=== PATIENT | female | born 1970 | race Caucasian/White ===

== ENCOUNTER → 2018-01-27 | Outpatient (CLI) | payer BC | END | disposition home or self-care (01) | LOC: KCIC MAMMO 16:05 | DX: Z12.31 Encounter for screening mammogram for malignant neoplasm of breast (principal) | CPT/HCPCS: 77063; 77067 ==

== ENCOUNTER → 2018-02-21 | Outpatient (CLI) | payer BC ==
[~2018-02-21] MED LIST: IOHEXOL 240 MG/ML 50ML VIAL. PO
[2018-02-21] MEDS: IOHEXOL 300 MG/ML 100ML VIAL. IV (12:18)
== END | disposition home or self-care (01) ==
LOC: KCIC CT 09:14
DX: E78.00 Pure hypercholesterolemia, unspecified (principal); R10.84 Generalized abdominal pain; Z98.890 Other specified postprocedural states; Z98.84 Bariatric surgery status
CPT/HCPCS: 74177; 75571; Q9967

== ENCOUNTER → 2018-08-01 | Outpatient (CLI) | payer BC ==
--- NOTE | 2018-08-01 14:18 | KCIC ---
Left breast diagnostic digital mammograms: Reason for examination: Left breast pain deep and medial to the nipple radiating to the axilla for one week. Comparison is made to previous study dated 01/27/2018. Interpretation was made with the benefit of CAD. The skin and nipple show no abnormalities. No abnormal axillary lymph nodes are seen. The breast parenchyma shows scattered fibroglandular density. (Breast density: Category B.) There are no dominant masses, suspicious calcifications or architectural distortions. Impression: No evidence of malignancy. Ultrasound to follow. BI-RADS Category 0: Incomplete. Needs additional imaging evaluation. Left breast ultrasound: Left whole breast ultrasound including evaluation of all 4 quadrants and the retroareolar and axillary regions of the left breast was performed. No cystic or solid nodules or architectural distortions are seen. No abnormal appearing lymph nodes are seen in the axilla. IMPRESSION: No focal or suspicious abnormality seen mammographically in the left breast or axilla. Recommend routine mammographic follow-up and clinical follow-up. BI-RADS Category 1: Negative. "Our facility is accredited by the [employer] Mammography Program." This patient's information has been entered into a reminder system for the patient to be notified with the results of her examination and a target date for the next mammogram. Electronically signed by: Anita Wray MD (08/01/2018 2:15 PM) [id number]
== END | disposition home or self-care (01) ==
LOC: KCIC MAMMO 12:06
PROVIDERS: ATTEND Family Medicine
DX: N64.4 Mastodynia (principal); E78.00 Pure hypercholesterolemia, unspecified
CPT/HCPCS: 76641; 77065

== ENCOUNTER → 2019-11-11 | Outpatient (CLI) | payer BC, OTHER ==
--- NOTE | 2019-11-11 16:23 | KCIC ---
Renal ultrasound 11/11/2019 INDICATION: Abnormal CT, performed at outside institution October 29, 2019 no images are available for review. Discussion: Sonographic evaluation of the kidneys was performed. Static images are submitted to PACS. Right kidney measures 10.1 x 4.8 x 5.0 cm. Left kidney measures 10.4 x 4.4 x 4.6 cm. No hydronephrosis, nephrolithiasis, or focal renal lesion is seen. Limited color Doppler evaluation of the kidneys demonstrates no gross perfusion abnormality. Visualized portions of the aorta are unremarkable. The IVC is nonvisualized. The bladder is unremarkable in appearance. Bilateral ureteral jets noted. IMPRESSION: Unremarkable sonographic appearance of the kidneys Electronically signed by: Taqueria Mauro MD (11/11/2019 4:20 PM) [id number]
--- NOTE | 2019-11-11 16:47 | KCIC ---
Bilateral digital screening mammograms with 3-D tomosynthesis: Reason for examination: Routine screening. Comparison is made to previous studies dated 01/27/2018 and 02/21/2016. Bilateral mammograms in CC and oblique projections were obtained with 2-D imaging and 3-D tomosynthesis imaging on a [employer] Inspiration unit and reviewed on the workstation. Interpretation was made with the benefit of CAD. The skin and nipples show no abnormalities. No abnormal axillary lymph nodes are seen. The breast parenchyma is predominantly fatty. (Breast density: Category A.) There are no dominant masses, suspicious calcifications or architectural distortion. Impression: No evidence of malignancy. Recommend routine screening. BI-RAD Category 1: Negative. "Our facility is accredited by the [employer] Mammography Program." This patient's information has been entered into a reminder system for the patient to be notified with the results of her examination and a target date for the next mammogram. Electronically signed by: Anita Wray MD (11/11/2019 4:44 PM) [id number]
== END | disposition home or self-care (01) ==
LOC: KCIC MAMMO 15:04
PROVIDERS: ATTEND Family Medicine
DX: Z12.31 Encounter for screening mammogram for malignant neoplasm of breast (principal); N64.89 Other specified disorders of breast
CPT/HCPCS: 76770; 77063; 77067

== ENCOUNTER → 2019-11-26 | Outpatient (CLI) | payer OTHER ==
[2019-11-26 09:08] LABS: HEMATOCRIT 36.7 % (36.0-47.0); RED BLOOD COUNT 4.36 x10^6/uL (3.50-5.40); RED CELL DISTRIBUTION WIDTH 14.8 % (11.5-14.5); WHITE BLOOD COUNT 4.9 x10^3/uL (4.0-11.0)
[2019-11-26 10:06] LABS: ALBUMIN 4.1 g/dL (3.4-5.0); ALBUMIN/GLOBULIN RATIO 1.2 (1.0-1.7); CALCIUM 9.2 mg/dL (8.5-10.1); CREATININE 0.9 mg/dL (0.6-1.0); GFR 66.3; POTASSIUM 4.7 mmol/L (3.5-5.1); TOTAL BILIRUBIN 0.4 mg/dL (0.2-1.0); TOTAL PROTEIN 7.5 g/dL (6.4-8.2)
[2019-11-26 10:20] LABS: FREE T4 1.28 ng/dL (0.76-1.46); THYROID STIM HORMONE (TSH) 2.509 uIU/mL (0.358-3.74)
== END | disposition home or self-care (01) ==
LOC: LAB 08:00
PROVIDERS: ATTEND Nurse Practitioner Gerontology
DX: Z00.00 Encounter for general adult medical examination without abnormal findings (principal)
CPT/HCPCS: 36415; 80053; 80061; 84439; 84443; 85027

== ENCOUNTER → 2019-12-01 | Outpatient (CLI) | payer OTHER ==
[~2019-12-01] MED LIST changes: -IOHEXOL 240 MG/ML 50ML VIAL. PO; +IOHEXOL 240 MG/ML 50ML VIAL. PO ONE; +IOHEXOL 300 MG/ML 100ML VIAL. IV ONE
--- NOTE | 2019-12-01 14:29 | KCIC ---
CT of the abdomen and pelvis with contrast 12/01/2019 INDICATION: Abnormality of the right kidney COMPARISON STUDY: Renal ultrasound November 11, 2019. CT of the abdomen February 21, 2018. TECHNIQUE: Multidetector CT imaging of the abdomen and pelvis was performed following installation IV contrast FINDINGS: Lung bases are unremarkable. Liver is unremarkable. Cholecystectomy noted. Gastric bypass noted. Spleen is unremarkable. Adrenal glands are unremarkable. Pancreas is grossly unremarkable. Kidneys are normal in appearance without evidence of necrosis, nephrolithiasis, or focal renal lesion. Increased stool is noted throughout the colon. Correlate with clinical evidence of constipation. No free air or significant free fluid is seen in the abdomen or pelvis. No acute osseous changes are identified. IMPRESSION: 1. Significantly increased stool throughout the colon. Correlate with clinical evidence of constipation. 2. Normal appearance of the kidneys. 3. Prior cholecystectomy and gastric bypass surgery CT DOSING PQRS STATEMENT: One or more of the following individualized dose reduction techniques were utilized for this examination: 1. Automated exposure control 2. Adjustment of the mA and/or kV according to patient size 3. Use of iterative reconstruction technique Electronically signed by: Taqueria Mauro MD (12/01/2019 2:26 PM) [id number]
== END | disposition home or self-care (01) ==
LOC: KCIC CT 07:47
PROVIDERS: ATTEND Nurse Practitioner Gerontology
DX: R93.429 Abnormal radiologic findings on diagnostic imaging of unspecified kidney (principal); Z90.49 Acquired absence of other specified parts of digestive tract
CPT/HCPCS: 74177; Q9966; Q9967

== ENCOUNTER → 2020-05-12 | Outpatient (CLI) | payer OTHER ==
--- NOTE | 2020-05-12 11:53 | KCIC ---
BRAIN W/O CONTRAST History:Reason: FREQUENT HEADACHES / Spl. Instructions: / History: Dizziness, Rt temporal headaches. Technique: Multiplanar, multi sequential MR imaging was performed of the brain without contrast. Comparison: None Findings: No acute infarct. No intracranial hemorrhage. No mass effect. No hydrocephalus. Minimal foci of FLAIR hyperintensities within the hemispheric white matter. Imaged orbits are unremarkable. Imaged paranasal sinuses and mastoid air cells are clear. Impression: 1. No acute intracranial abnormality. 2. Minimal nonspecific white matter changes, can be seen in normal individuals or related to sequela chronic microvascular ischemia or migraine headaches. Electronically signed by: Patrice Baptiste DO (05/12/2020 11:51 AM) [id number]
== END | disposition home or self-care (01) ==
LOC: KCIC MRI 10:58
PROVIDERS: ATTEND Nurse Practitioner Gerontology
DX: R51 Headache (principal)
CPT/HCPCS: 70551

== ENCOUNTER → 2020-05-24 | Outpatient (CLI) | payer OTHER ==
[2020-05-24 09:04] LABS: HEMATOCRIT 34.6 % (36.0-47.0); HEMOGLOBIN 11.6 g/dL (12.0-15.5); RED BLOOD COUNT 3.96 x10^6/uL (3.50-5.40); RED CELL DISTRIBUTION WIDTH 13.8 % (11.5-14.5); WHITE BLOOD COUNT 4.2 x10^3/uL (4.0-11.0)
[2020-05-24 09:23] LABS: ALBUMIN 3.7 g/dL (3.4-5.0); ALBUMIN/GLOBULIN RATIO 1.2 (1.0-1.7); CREATININE 1.1 mg/dL (0.6-1.0); GFR 52.4; POTASSIUM 4.5 mmol/L (3.5-5.1); TOTAL BILIRUBIN 0.4 mg/dL (0.2-1.0); TOTAL PROTEIN 6.9 g/dL (6.4-8.2)
[2020-05-24 09:27] LABS: FREE T4 1.07 ng/dL (0.76-1.46); THYROID STIM HORMONE (TSH) 3.429 uIU/mL (0.358-3.74)
== END | disposition home or self-care (01) ==
LOC: LAB 07:55
PROVIDERS: ATTEND Nurse Practitioner Gerontology
DX: R30.0 Dysuria (principal); R51 Headache
CPT/HCPCS: 36415; 80053; 82306; 84439; 84443; 85027; 87086

== ENCOUNTER → 2020-06-21 | Outpatient (CLI) | payer OTHER ==
[2020-06-21 15:45] LABS: CLARITY,URINE CLOUDY; COLOR,URINE ORANGE
[2020-06-21 15:48] LABS: WBC,URINE >40 /HPF (0-4)
[2020-06-21 15:49] LABS: BACTERIA,URINE MOD /HPF (0-FEW); SQUAMOUS EPITHELIAL CELL,UR FEW /LPF
== END | disposition home or self-care (01) ==
LOC: LAB 15:00
PROVIDERS: ATTEND Nurse Practitioner Gerontology
DX: R30.0 Dysuria (principal)
CPT/HCPCS: 81001; 87086

== ENCOUNTER → 2020-07-19 | Outpatient (CLI) | payer OTHER ==
[2020-07-19 09:08] LABS: C-REACTIVE PROTEIN 6.6 mg/L (0-3.3)
[2020-07-19 09:13] LABS: CHOLESTEROL/HDL RATIO 4.8
== END | disposition home or self-care (01) ==
LOC: LAB 11:03
PROVIDERS: ATTEND Family Medicine
DX: Z13.220 Encounter for screening for lipoid disorders (principal); G50.0 Trigeminal neuralgia
CPT/HCPCS: 36415; 80061; 86140

== ENCOUNTER → 2020-11-15 | Outpatient (CLI) | payer OTHER ==
[2020-11-15 08:53] LABS: CHOLESTEROL/HDL RATIO 3.7
[2020-11-15 08:57] LABS: FREE T4 0.95 ng/dL (0.76-1.46); THYROID STIM HORMONE (TSH) 3.362 uIU/mL (0.358-3.74)
== END ==
LOC: LAB 08:02
PROVIDERS: ATTEND Family Medicine
DX: E78.2 Mixed hyperlipidemia (principal); F41.1 Generalized anxiety disorder
CPT/HCPCS: 36415; 80061; 84439; 84443

== ENCOUNTER → 2020-12-07 | Outpatient (CLI) | payer OTHER ==
--- NOTE | 2020-12-07 17:19 | KCIC ---
Bilateral digital screening mammograms with 3-D tomosynthesis: Reason for examination: Routine screening. Comparison is made to previous studies dated back to 12/02/2009. Bilateral mammograms in CC and oblique projections were obtained with 2-D imaging and 3-D tomosynthes is imaging on a [employer] Inspiration unit and reviewed on the workstation. Interpretation was made with the benefit of CAD. The skin and nipples show no abnormalities. No abnormal axillary lymph nodes are seen. The breast par enchyma is predominantly fatty. (Breast density: Category A.) There are no dominant masses, suspiciou s calcifications or architectural distortion. Benign skin calcifications are seen. Impression: No evidence of malignancy. Recommend routine screening. BI-RAD Category 2: Benign. "Our facility is accredited by the [employer] Mammography Program." This patient's information has been entered into a reminder system for the patient to be notified wit h the results of her examination and a target date for the next mammogram. Electronically signed by: Anita Wray MD (12/07/2020 5:16 PM) [id number]
== END ==
LOC: KCIC MAMMO 15:17
PROVIDERS: ATTEND Family Medicine
DX: Z12.31 Encounter for screening mammogram for malignant neoplasm of breast (principal)
CPT/HCPCS: 77063; 77067

== ENCOUNTER 2021-01-11 06:55 | Observation (INO) | payer OTHER ==
[~2021-01-11] VITALS: Ht 157.5 cm; Wt 81.5 kg
--- NOTE | 2021-01-11 07:25 | PHYS DOC ---
Past Medical History Past Medical History: High Cholesterol Additional Past Medical Histor: "head pain" Past Surgical History: Other Additional Past Surgical Histo: lap band, gastric bypass, hernia Smoking Status: Never Smoker Alcohol Use: None Drug Use: None General Adult EDM: Chief Complaint: CHEST PAIN HPI: HPI: This is a pleasant 50-year-old female presenting the emerge department today w ith chest pain that happened overnight. She reports she feels like she "swallowed something" like something stuck in her esophagus. She reports having a normal meal yesterday and denies thinking some things actually stuck in her esophagus she is just describing the pain in her chest. She tried to drink some water which she was able to drink. This did exacerbate her pain. She denies difficulty breathing or shortness of breath. The pain is a cramping burning sensation that radiates to the left shoulder without leaving factors. She reports that she felt some numbness in her hand associated with the pain. Review of systems negative for abdominal pain vomiting. She denies fevers chills or cough. All other review of systems negative. ED course: 50-year-old female presenting with chest pain. EKG obtained which shows sinus rhythm with a regular rate. ST segments congruent. Not suggestive of acute ischemia. Blood work unremarkable. Patient was given aspirin nitroglycerin and a GI cocktail here in the emergency department. Will admit the patient given her heart score for serial troponins and cardiology consultation. I spoke with Dr. Rojas who accepts patient for admission. Basic bridge orders placed along with cardiology consultation. Heart Score: C/O Chest Pain: Yes HEART Score for Chest Pain: HEART Score for Chest Pain Response (Comments) Value History Moderately Suspicious 1 ECG Nonspecific Repolarizatio 1 Age >45 - < 65 1 Risk Factors 1 or 2 Risk Factors 1 Total 4 Risk Factors: Risk Factors: DM, Current or recent (<one month) smoker, HTN, HLP, family history of CAD, obesity. Risk Scores: Score 0 - 3: 2.5% MACE over next 6 weeks - Discharge Home Score 4 - 6: 20.3% MACE over next 6 weeks - Admit for Clinical Observation Score 7 - 10: 72.7% MACE over next 6 weeks - Early Invasive Strategies Allergies: Allergies: Allergies Coded Allergies Type Severity Reaction Last Updated Verified Penicillins Allergy Intermediate 02/21/18 Yes Physical Exam: PE: Constitutional: Well developed, well nourished, no acute distress, non-toxic appearance. [] HENT: Normocephalic, atraumatic, bilateral external ears normal, oropharynx moist, no oral exudates, nose normal. [] Eyes: PERRLA, EOMI, conjunctiva normal, no discharge. [] Neck: Normal range of motion, no tenderness, supple, no stridor. [] Cardiovascular:Heart rate regular rhythm, no murmur [] Lungs & Thorax: Bilateral breath sounds clear to auscultation [] Abdomen: Bowel sounds normal, soft, no tenderness, no masses, no pulsatile masses. [] Skin: Warm, dry, no erythema, no rash. [] Back: No tenderness, no CVA tenderness. [] Extremities: No tenderness, no cyanosis, no clubbing, ROM intact, no edema. [] Palpable pulses bilaterally in the upper extremities. Neurologic: Alert and oriented X 3, normal motor function, normal sensory function, no focal deficits noted. [] Psychologic: Affect normal, judgement normal, mood normal. [] Current Patient Data: Vital Signs: Vital Signs Date Time Temp Pulse Resp B/P (MAP) Pulse Ox O2 Delivery O2 Flow Rate FiO2 01/11/21 07:10 97.6 80 16 129/80 (96) 97 Room Air 97.6 EKG: EKG: [] Radiology/Procedures: Radiology/Procedures: [] Course & Med Decision Making: Course & Med Decision Making Pertinent Labs and Imaging studies reviewed. (See chart for details) [] Dragon Disclaimer: Dragon Disclaimer: This electronic medical record was generated, in whole or in part, using a voice recognition dictation system. Departure Departure Impression: Primary Impression: Chest pain Disposition: ADMITTED INPT THIS HOSP Admitting Physician: Danielle Cortes Condition: STABLE Referrals: DANIELLE CORTES MD (PCP) ALANA JACOBS MD Jan 11, 2021 07:25
--- NOTE | 2021-01-11 07:36 | RAD ---
EXAM: XR CHEST 1V 01/11/2021 7:09 AM CLINICAL INDICATION: Chest pain, left arm numbness COMPARISON: None TECHNIQUE: AP upright view of the chest FINDINGS: The heart and mediastinum are normal. Lungs are well-expanded and clear. No consolidatio n, pleural effusion, or pneumothorax. Pulmonary vascularity is normal. The thoracic skeleton is int act. IMPRESSION: Normal chest radiograph. Electronically signed by: Arlin Padgett MD (01/11/2021 7:34 AM) [id number]
--- NOTE | 2021-01-11 07:39 | EKG ---
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
[2021-01-11 07:40] LABS: BASO % 0 % (0-3); EOS # 0.2 x10^3/uL (0.0-0.7); EOS % 4 % (0-3); HEMOGLOBIN 11.3 g/dL (12.0-15.5); LYMPH % 20 % (24-48); MEAN CORPUSCULAR HEMOGLOBIN 29 pg (25-35); MEAN CORPUSCULAR HGB CONC 33 g/dL (31-37); MEAN CORPUSCULAR VOLUME 88 fL (79-100); MONO # 0.5 x10^3/uL (0.0-1.1); MONO % 10 % (0-9); NEUT # 3.3 x10^3/uL (1.8-7.7); NEUT % 67 % (31-73); PLATELET COUNT 173 x10^3/uL (140-400); RED BLOOD COUNT 3.88 x10^6/uL (3.50-5.40); RED CELL DISTRIBUTION WIDTH 15.6 % (11.5-14.5); WHITE BLOOD COUNT 4.9 x10^3/uL (4.0-11.0)
[2021-01-11] MEDS ORDERED: NITROGLYCERIN SUBLINGUAL 0.4 MG BOTTLE OF 25. SL PRN (07:45)
[2021-01-11] MEDS ORDERED: ASPIRIN CHEWABLE 81 MG TABLET. PO ONE (07:45)
[2021-01-11 07:47] LABS: CALCIUM 8.7 mg/dL (8.5-10.1); CREATININE 0.9 mg/dL (0.6-1.0); POTASSIUM 3.9 mmol/L (3.5-5.1)
[2021-01-11 07:54] LABS: ALBUMIN 3.8 g/dL (3.4-5.0); DIRECT BILIRUBIN 0.1 mg/dL (0.0-0.2); TOTAL BILIRUBIN 0.4 mg/dL (0.2-1.0); TOTAL PROTEIN 6.7 g/dL (6.4-8.2)
[2021-01-11] MEDS ORDERED: LIDO:MAALOX 1:1 20 ML SINGLE DOSE. SWSW ONE ×2 (08:30→13:30)
[2021-01-11] MEDS ORDERED: MORPHINE SULFATE 2 MG/ML VIAL. IV PRN (08:30)
[2021-01-11] MEDS ORDERED: ONDANSETRON PF 4 MG/2 ML VIAL. IV ONE (10:00)
[2021-01-11 10:25] VITALS: BP 105/62
[2021-01-11] MEDS ORDERED: TRAZ150T49 PO (10:49)
[2021-01-11] MEDS ORDERED: FLUO40CA9 PO (10:49)
[2021-01-11] MEDS ORDERED: CARB100C4 PO (10:49)
[2021-01-11] MEDS ORDERED: NAPR500T8 PO (10:49)
[2021-01-11] MEDS ORDERED: ATOR80TA72 PO (10:49)
[2021-01-11 11:04] VITALS: BP 105/62
--- NOTE | 2021-01-11 14:05 | PDOC2 ---
CARDIAC CONSULT DATE OF CONSULT Date of Consult DATE: 01/11/21 TIME: 13:34 REASON FOR CONSULT Reason for Consult: Chest pain REFERRING PHYSICIAN Referring Physician: Kishan SOURCE Source: Chart review, Patient HISTORY OF PRESENT ILLNESS HISTORY OF PRESENT ILLNESS This is a pleasant 50 yo female admitted for complains of chest pain. 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 Reports that this started early this morning. She went to bed last night and was doing OK but woke up 2-3 times during the night and felt like there was something stuck past her throat. She finally got up like 5 in the morning and felt some midchest pressure and felt slightly dizzy. Also with sharp pain to her left shoulder and shoulder blade. No palpitations. Some nausea but no diaphoresis. She was heading to the hospital when she felt this tingling on her left arm. She also has been having intermittent dizzy spells not long lasting and no prior falls or passing out. No vomiting and denies heartburn. She was given GI cocktail in ED and actually that helped her chest discomfort., No prior hx of arrhythmias, VTE nor CAD. She had gastric bypass after her lap band did not work for her in 2009. She has not any GI specialist for a very long time. No recent GI workup and no prior ischemic workup as well. She has sciatica and has been taking nightly high dose naproxen in the last yr. She does not take any pepcid or prilosec type meds. She takes prozac for seasonal depression and tegretol for SAUNDERS. She takes statin for HLP. To add she used to be in the 300 pounds and then gain some wt but started walking exercise last week which did not trigger any cardiac related symptoms and just started wt watchers. No fever or chills, no anosmia, ageusia. No prior covid-19 exposure. This is the first she has had this symptoms for a long time. PAST MEDICAL HISTORY Cardiovascular: Hyperlipidemia Pulmonary: No pertinent hx CENTRAL NERVOUS SYSTEM: Other (SAUNDERS) GI: Other (gastric bypass) Heme/Onc: No pertinent hx Hepatobiliary: Cholelithiasis Psych: Depression Musculoskeletal: low back pain (sciatca), Osteoarthritis Rheumatologic: No pertinent hx Infectious disease: No pertinent hx ENT: No pertinent hx Renal/: No pertinent hx Endocrine: No pertinent hx Dermatology: No pertinent hx PAST SURGICAL HISTORY Past Surgical History: Cholecystectomy, Hernia Repair, Hysterectomy, Other (oopherectomy, lap band then converted to gastric bypass in 2010) FAMILY HISTORY Family History: Coronary Artery Disease (father in his 60s) SOCIAL HISTORY Smoke: No ALCOHOL: none Drugs: None Lives: Alone CURRENT MEDICATIONS CURRENT MEDICATIONS Current Medications Medications (Trade) Dose Ordered Sig/Val Route PRN Reason Start Time Stop Time Status Last Admin Dose Admin Aspirin (Aspirin Chewable) 324 mg 1X ONCE PO 01/11/21 07:45 01/11/21 07:46 DC 01/11/21 07:44 Nitroglycerin (Nitrostat) 0.4 mg PRN Q5MIN PRN SL CHEST PAIN 01/11/21 07:45 01/11/21 07:44 Multi-Ingredient Mouthwash/Gargle (Gi Cocktail) 20 ml 1X ONCE SWSW 01/11/21 08:30 01/11/21 08:31 DC 01/11/21 08:31 Ondansetron HCl (Zofran) 4 mg 1X ONCE IV 01/11/21 10:00 01/11/21 10:01 DC 01/11/21 09:58 ALLERGIES ALLERGIES: Coded Allergies: Penicillins (Verified Allergy, Intermediate, 02/21/18) ROS Review of System 14 point ROS evaluated with pertinent positives noted per HPI PHYSICAL EXAM General: Alert, Oriented X3, Cooperative, No acute distress HEENT: Atraumatic, Mucous membr. moist/pink Lungs: Clear to auscultation, Normal air movement Heart: Regular rate (SB), Normal S1, Normal S2, No murmurs Abdomen: Soft, No tenderness Extremities: No cyanosis, No edema Skin: No breakdown, No significant lesion Neuro: Normal speech, Sensation intact Psych/Mental Status: Mental status NL, Mood NL MUSCULOSKELETAL: Osteoarthritic changes both hands VITALS/I&O VITALS/I&O: Vital Signs Date Time Temp Pulse Resp B/P (MAP) Pulse Ox O2 Delivery O2 Flow Rate FiO2 01/11/21 11:09 Room Air 01/11/21 11:04 97.9 49 16 105/62 (76) 97 97.9 LABS Lab: Laboratory Tests Test 01/11/21 07:24 01/11/21 11:36 White Blood Count 4.9 x10^3/uL (4.0-11.0) Red Blood Count 3.88 x10^6/uL (3.50-5.40) Hemoglobin 11.3 g/dL (12.0-15.5) L Hematocrit 34.0 % (36.0-47.0) L Mean Corpuscular Volume 88 fL (79-100) Mean Corpuscular Hemoglobin 29 pg (25-35) Mean Corpuscular Hemoglobin Concent 33 g/dL (31-37) Red Cell Distribution Width 15.6 % (11.5-14.5) H Platelet Count 173 x10^3/uL (140-400) Neutrophils (%) (Auto) 67 % (31-73) Lymphocytes (%) (Auto) 20 % (24-48) L Monocytes (%) (Auto) 10 % (0-9) H Eosinophils (%) (Auto) 4 % (0-3) H Basophils (%) (Auto) 0 % (0-3) Neutrophils # (Auto) 3.3 x10^3/uL (1.8-7.7) Lymphocytes # (Auto) 1.0 x10^3/uL (1.0-4.8) Monocytes # (Auto) 0.5 x10^3/uL (0.0-1.1) Eosinophils # (Auto) 0.2 x10^3/uL (0.0-0.7) Basophils # (Auto) 0.0 x10^3/uL (0.0-0.2) D-Dimer (Peggy) < 0.27 ug/mlFEU Sodium Level 137 mmol/L (136-145) Potassium Level 3.9 mmol/L (3.5-5.1) Chloride Level 104 mmol/L (98-107) Carbon Dioxide Level 27 mmol/L (21-32) Anion Gap 6 (6-14) Blood Urea Nitrogen 17 mg/dL (7-20) Creatinine 0.9 mg/dL (0.6-1.0) Estimated GFR (Cockcroft-Gault) 66.0 Glucose Level 100 mg/dL (70-99) H Calcium Level 8.7 mg/dL (8.5-10.1) Total Bilirubin 0.4 mg/dL (0.2-1.0) Direct Bilirubin 0.1 mg/dL (0.0-0.2) Aspartate Amino Transferase (AST) 29 U/L (15-37) Alanine Aminotransferase (ALT) 39 U/L (14-59) Alkaline Phosphatase 91 U/L (46-116) Troponin I Quantitative < 0.017 ng/mL (0.000-0.055) < 0.017 ng/mL (0.000-0.055) HG-Hhi-B-Type Natriuretic Peptide 134 pg/mL (0-124) H Total Protein 6.7 g/dL (6.4-8.2) Albumin 3.8 g/dL (3.4-5.0) Lipase 289 U/L (73-393) Laboratory Tests 01/11/21 07:24 Laboratory Tests 01/11/21 07:24 ASSESSMENT/PLAN ASSESSMENT/PLAN 1. Chest pain: suspect GI 2. GERD exacerbation with odynophagia 3. Chronic NSAID use: nightly use of 500 mg naproxen without any PPI nor H2 emily 4. Hx of gastric bypass: in 2009 unknown what type 5. Asymptomatic SB: mid 40s at rest with good chronotropic response 6. Intermittent Dizziness 7. Tegretol use for SAUNDERS 8. HLP 9. Obesity Recommendations 1. GI cocktail, start PPI. Consult GI. DC routine naproxen 2. Recommend alternative to tegretol as this may cause lipitor toxicity/myopathy and decrease effectiveness of PPI 3. Check TSH and FLP 4. Obtain baseline TTE. Given her risk factors including family hx will arrange for treadmill stress test as an outpt 5. Would also consider MCOT given her complaint of dizziness LALI QUINTANILLA APRN Jan 11, 2021 14:05
[2021-01-11 14:28] LABS: CHOLESTEROL/HDL RATIO 3.3
--- NOTE | 2021-01-11 15:05 | PDOC2 ---
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 Awoke during the night w/ lower mid chest/epigastric discomfort - her first thought was "maybe my pills didn't go down" but then remembered before her dad had a heart attack he felt like he "swallowed a grapefruit." Admitted through ER, followed by cardiology w/ plans for echo. She has ongoing discomfort in lower chest - "feels like something is there." It is constant, worse w/ swallowing saliva (and also hurt to drink liquids before admission this morning), and can be "throbbing 10/10" pain. Possibly improved w/ GI cocktail. Denies reflux/heartburn. Had dysphagia in the past related to lap band, resolved when lap band removed. No n/v. No chronic abd pain. Denies diarrhea and constipation (note CT in 11/2019 showed constipation). No hematochezia or melena. H/o Celina-en-Y (after lap band) for weight loss in 2009 @ [facility]. Initially lost ~200 pounds, then gained ~90 back, then lost some. No EGD since surgery. Colonoscopy in [place], [place] ~1 year ago reportedly showed tortuosity and melanosis coli. S/p cholecystectomy for sludge. No liver or pancreas history. Remote h/o "ulcer" in high school, can't recall how diagnosed - ?scope ?imaging - took Tagamet. Taking up to 1000mg Naproxen for 6-12 months for sciatic pain. Used to take ASA but stopped. She would really like to have an inpatient EGD. PMH: PMH: trigeminal neuralgia, depression, HLD, UTI, sciatica cholecystectomy, hernia repair (describes upper abdomen), hysterectomy, bilateral oophorectomy, lap band, Celina-en-Y FH: Family History: No pertinent hx (denies GI cancers), CAD Social History: Smoke: No ALCOHOL: other (some in past, none x 5 years) Drugs: None ROS: GEN: Denies fevers, chills, sweats HEENT: Denies blurred vision, sore throat CV: +chest pain RESP: Denies shortness of air, cough GI: Per HPI : Denies hematuria, dysuria ENDO: +fluctuating weight NEURO: Denies confusion, dizziness MSK: +sciatica SKIN: Denies jaundice, pruritus Vitals: Vitals: Vital Signs Date Time Temp Pulse Resp B/P (MAP) Pulse Ox O2 Delivery O2 Flow Rate FiO2 01/11/21 11:09 Room Air 01/11/21 11:04 97.9 49 16 105/62 (76) 97 97.9 Labs: Labs: Laboratory Tests Test 01/11/21 07:24 01/11/21 11:36 01/11/21 14:08 White Blood Count 4.9 x10^3/uL (4.0-11.0) Red Blood Count 3.88 x10^6/uL (3.50-5.40) Hemoglobin 11.3 g/dL (12.0-15.5) Hematocrit 34.0 % (36.0-47.0) Mean Corpuscular Volume 88 fL (79-100) Mean Corpuscular Hemoglobin 29 pg (25-35) Mean Corpuscular Hemoglobin Concent 33 g/dL (31-37) Red Cell Distribution Width 15.6 % (11.5-14.5) Platelet Count 173 x10^3/uL (140-400) Neutrophils (%) (Auto) 67 % (31-73) Lymphocytes (%) (Auto) 20 % (24-48) Monocytes (%) (Auto) 10 % (0-9) Eosinophils (%) (Auto) 4 % (0-3) Basophils (%) (Auto) 0 % (0-3) Neutrophils # (Auto) 3.3 x10^3/uL (1.8-7.7) Lymphocytes # (Auto) 1.0 x10^3/uL (1.0-4.8) Monocytes # (Auto) 0.5 x10^3/uL (0.0-1.1) Eosinophils # (Auto) 0.2 x10^3/uL (0.0-0.7) Basophils # (Auto) 0.0 x10^3/uL (0.0-0.2) D-Dimer (Peggy) < 0.27 ug/mlFEU Sodium Level 137 mmol/L (136-145) Potassium Level 3.9 mmol/L (3.5-5.1) Chloride Level 104 mmol/L (98-107) Carbon Dioxide Level 27 mmol/L (21-32) Anion Gap 6 (6-14) Blood Urea Nitrogen 17 mg/dL (7-20) Creatinine 0.9 mg/dL (0.6-1.0) Estimated GFR (Cockcroft-Gault) 66.0 Glucose Level 100 mg/dL (70-99) Calcium Level 8.7 mg/dL (8.5-10.1) Total Bilirubin 0.4 mg/dL (0.2-1.0) Direct Bilirubin 0.1 mg/dL (0.0-0.2) Aspartate Amino Transf (AST/SGOT) 29 U/L (15-37) Alanine Aminotransferase (ALT/SGPT) 39 U/L (14-59) Alkaline Phosphatase 91 U/L (46-116) Troponin I Quantitative < 0.017 ng/mL (0.000-0.055) < 0.017 ng/mL (0.000-0.055) < 0.017 ng/mL (0.000-0.055) TQ-Hhy-H-Type Natriuretic Peptide 134 pg/mL (0-124) Total Protein 6.7 g/dL (6.4-8.2) Albumin 3.8 g/dL (3.4-5.0) Triglycerides Level 85 mg/dL (0-150) Cholesterol Level 173 mg/dL (0-200) LDL Cholesterol, Calculated 103 mg/dL (0-100) VLDL Cholesterol, Calculated 17 mg/dL (0-40) Non-HDL Cholesterol Calculated 120 mg/dL (0-129) HDL Cholesterol 53 mg/dL (40-60) Cholesterol/HDL Ratio 3.3 Lipase 289 U/L (73-393) Thyroid Stimulating Hormone (TSH) 2.401 uIU/mL (0.358-3.74) Allergies: Coded Allergies: Penicillins (Verified Allergy, Intermediate, 02/21/18) Medications: Current Medications Medications (Trade) Dose Ordered Sig/Val Route PRN Reason Start Time Stop Time Status Last Admin Dose Admin Aspirin (Aspirin Chewable) 324 mg 1X ONCE PO 01/11/21 07:45 01/11/21 07:46 DC 01/11/21 07:44 Nitroglycerin (Nitrostat) 0.4 mg PRN Q5MIN PRN SL CHEST PAIN 01/11/21 07:45 01/11/21 07:44 Multi-Ingredient Mouthwash/Gargle (Gi Cocktail) 20 ml 1X ONCE SWSW 01/11/21 08:30 01/11/21 08:31 DC 01/11/21 08:31 Ondansetron HCl (Zofran) 4 mg 1X ONCE IV 01/11/21 10:00 01/11/21 10:01 DC 01/11/21 09:58 Multi-Ingredient Mouthwash/Gargle (Gi Cocktail) 20 ml 1X ONCE SWSW 01/11/21 13:30 01/11/21 13:31 DC 01/11/21 14:22 Imaging: Imaging: CXR IMPRESSION: Normal chest radiograph. PE: GEN: NAD HEENT: Atraumatic, PERRL LUNGS: CTAB anteriorly HEART: bradycardic ABD: NABS, S/ND, mild epigastric discomfort - "it's inside" EXTREMITY: No edema SKIN: No rashes, no jaundice NEURO/PSYCH: A & O 3 A/P: A/P: Chest/epigastric pain, odynophagia, globus Mild anemia - stable CRC screen - UTD S/p cholecystectomy S/p Celina-en-Y Remote h/o PUD NSAID use -- Awaiting echo. Okay to try clears per GI. We discussed possible trial of PPI and GI cocktail (already ordered) +/- empiric anti-fungal +/- esophagram. She requests inpt EGD. Reviewed w/ Dr. Jolly - try medical therapy for now. Called update to nurse. Check anemia parameters for completeness. ALTAGRACIA SAENZ Jan 11, 2021 15:05
[2021-01-11 15:12] VITALS: BP 118/73
[2021-01-11] MEDS: PANTOPRAZOLE 40 MG TABLET.DR. PO SCH (16:05)
[2021-01-11] MEDS: NYSTATIN 100,000 UNITS/ML 5 ML ORAL.SUSP. SWSW SCH ×2 (16:29→20:03)
[2021-01-11 19:01] VITALS: BP 122/70
[2021-01-11] MEDS: SUCRALFATE 1 GM/10 ML ORAL.SUSP. PEG SCH (20:03)
[2021-01-11] MEDS: ATORVASTATIN CALCIUM 40 MG TABLET. PO SCH (20:04)
[2021-01-11] MEDS: carBAMazepine 200 MG TABLET PO SCH (20:04)
[2021-01-11] MEDS: FLUoxetine HCL 20 MG CAPSULE PO SCH (20:05)
[2021-01-11] MEDS: traZODone 50 MG TABLET. PO SCH (20:05)
[2021-01-11 22:38] VITALS: BP 104/60
[2021-01-12 03:02] VITALS: BP 91/45
[2021-01-12] MEDS: SUCRALFATE 1 GM/10 ML ORAL.SUSP. PEG SCH ×4 (05:50→20:47)
[2021-01-12] MEDS: PANTOPRAZOLE 40 MG TABLET.DR. PO SCH ×2 (05:50→16:06)
[2021-01-12 07:01] VITALS: BP 108/63
[2021-01-12 07:33] LABS: BASO % 1 % (0-3); EOS # 0.2 x10^3/uL (0.0-0.7); EOS % 5 % (0-3); HEMATOCRIT 34.1 % (36.0-47.0); HEMOGLOBIN 11.4 g/dL (12.0-15.5); LYMPH # 0.9 x10^3/uL (1.0-4.8); LYMPH % 29 % (24-48); MEAN CORPUSCULAR HEMOGLOBIN 29 pg (25-35); MEAN CORPUSCULAR HGB CONC 34 g/dL (31-37); MEAN CORPUSCULAR VOLUME 88 fL (79-100); MONO # 0.3 x10^3/uL (0.0-1.1); MONO % 9 % (0-9); NEUT # 1.7 x10^3/uL (1.8-7.7); NEUT % 56 % (31-73); PLATELET COUNT 163 x10^3/uL (140-400); RED BLOOD COUNT 3.89 x10^6/uL (3.50-5.40); RED CELL DISTRIBUTION WIDTH 15.6 % (11.5-14.5)
--- NOTE | 2021-01-12 07:58 | PDOC ---
Provider Note Date of Service: DATE: 01/12/21 TIME: 08:01 Provider Note dictated Justifications for Admission Other Justification GINETTE VELAZQUEZ MD Jan 12, 2021 07:58
[2021-01-12 08:00] LABS: ALBUMIN 3.5 g/dL (3.4-5.0); ALBUMIN/GLOBULIN RATIO 1.2 (1.0-1.7); CALCIUM 8.9 mg/dL (8.5-10.1); CREATININE 0.9 mg/dL (0.6-1.0); POTASSIUM 4.6 mmol/L (3.5-5.1); TOTAL BILIRUBIN 0.3 mg/dL (0.2-1.0); TOTAL PROTEIN 6.4 g/dL (6.4-8.2)
[2021-01-12] MEDS: NYSTATIN 100,000 UNITS/ML 5 ML ORAL.SUSP. SWSW SCH ×4 (08:27→20:47)
[2021-01-12] MEDS: LIDO:MAALOX 1:1 20 ML SINGLE DOSE. PO PRN ×2 (08:27→17:00)
[2021-01-12 10:00] VITALS: BP 113/63
--- NOTE | 2021-01-12 11:15 | PDOC ---
Date of Service: DATE: 01/12/21 TIME: 11:11 Subjective: Subjective: Might have less chest pain/pain with swallowing. Very hungry. Low heartrate - said was 39 awhile ago. Says EGD planned for tomorrow morning. Objective: Vital Signs: Vital Signs Date Time Temp Pulse Resp B/P (MAP) Pulse Ox O2 Delivery O2 Flow Rate FiO2 01/12/21 10:00 98.1 45 16 113/63 (80) 97 Room Air 98.1 Labs: Laboratory Tests Test 01/11/21 11:36 01/11/21 14:08 01/12/21 07:10 Troponin I Quantitative < 0.017 ng/mL < 0.017 ng/mL White Blood Count 3.0 x10^3/uL Red Blood Count 3.89 x10^6/uL Hemoglobin 11.4 g/dL Hematocrit 34.1 % Mean Corpuscular Volume 88 fL Mean Corpuscular Hemoglobin 29 pg Mean Corpuscular Hemoglobin Concent 34 g/dL Red Cell Distribution Width 15.6 % Platelet Count 163 x10^3/uL Neutrophils (%) (Auto) 56 % Lymphocytes (%) (Auto) 29 % Monocytes (%) (Auto) 9 % Eosinophils (%) (Auto) 5 % Basophils (%) (Auto) 1 % Neutrophils # (Auto) 1.7 x10^3/uL Lymphocytes # (Auto) 0.9 x10^3/uL Monocytes # (Auto) 0.3 x10^3/uL Eosinophils # (Auto) 0.2 x10^3/uL Basophils # (Auto) 0.0 x10^3/uL Sodium Level 141 mmol/L Potassium Level 4.6 mmol/L Chloride Level 103 mmol/L Carbon Dioxide Level 30 mmol/L Anion Gap 8 Blood Urea Nitrogen 14 mg/dL Creatinine 0.9 mg/dL Estimated GFR (Cockcroft-Gault) 66.0 BUN/Creatinine Ratio 16 Glucose Level 86 mg/dL Calcium Level 8.9 mg/dL Total Bilirubin 0.3 mg/dL Aspartate Amino Transf (AST/SGOT) 27 U/L Alanine Aminotransferase (ALT/SGPT) 35 U/L Alkaline Phosphatase 90 U/L Total Protein 6.4 g/dL Albumin 3.5 g/dL Albumin/Globulin Ratio 1.2 Imaging: Echo 01/11 pending PE: GEN: NAD LUNGS: CTAB HEART: bradycardic - 41 when I saw ABD: less tender epigastrium NEURO/PSYCH: A & O 3 A/P: Bradycardia Odynophagia, globus Mild anemia - normal iron, low/normal B12 S/p Celina-en-Y, recent NSAID use -- Some improvement w/ PPI and Nystatin - continue. ADAT. Some bradycardia today - holding on inpt EGD for now. Justicifation of Admission Dx: Justifications for Admission: Justification of Admission Dx: Yes ALTAGRACIA SAENZ Jan 12, 2021 11:15
--- NOTE | 2021-01-12 11:21 | CARD ---
MR#: [id number] Date of Study: 01/11/2021 Ordering Physician: LALI QUINTANILLA, Referring Physician: LALI QUINTANILLA, Tech: Ivy Ernandezsurya, [facility] APPROVED REPORT EXAM: Two-dimensional and M-mode echocardiogram with Doppler and color Doppler. Other Information Quality : AverageHR: 43bpm INDICATION Chest Pain 2D DIMENSIONS Left Atrium(2D)3.8 (1.6-4.0cm)IVSd1.1 (0.7-1.1cm) Aortic Root(2D)3.0 (2.0-3.7cm)LVDd4.7 (3.9-5.9cm) LVOT Diameter2.2 (1.8-2.4cm)PWd1.0 (0.7-1.1cm) LVDs2.5 (2.5-4.0cm)FS (%) 46.5 % SV79.8 ml Aortic Valve AoV Peak Elias.139.8cm/sAoV VTI37.2cm AO Peak GR.7.8mmHgLVOT VTI 31.15cm AO Mean GR.4mmHg Mitral Valve MV E Xoogoyyp040.3cm/sMV DECEL FZOU710mb MV A Dnkxeojy29.6cm/sE/A Ratio1.5 TDI Lateral E' P. V11.78cm/sMedial E' P. V9.59cm/s E/Lateral E'8.6E/Medial E'10.6 Tricuspid Valve TR P. Owznebkh413nm/sRAP BWVJJGOP6ikOy TR Peak Gr.49wlTtCYLF95fcRq Pulmonary Vein S1 Sktiwcka18.7cm/sS2 Wnyezqfu82.22cm/s D2 Yhlrfrxr88.2cm/sPVa ehfapzxz542fisr LEFT VENTRICLE The left ventricle is normal size. There is borderline to mild concentric left ventricular hypertroph y. The left ventricular systolic function is normal and the ejection fraction is within normal range. The Ejection Fraction is 50-55%. There is normal LV segmental wall motion. The left ventricular wick tolic function and filling is normal for age. RIGHT VENTRICLE The right ventricle is normal size. There is normal right ventricular wall thickness. The right ventr icular systolic function is normal. ATRIA The left atrium size is normal. The right atrium size is normal. The interatrial septum is intact wit h no evidence for an atrial septal defect or patent foramen ovale as noted on 2-D or Doppler imaging. AORTIC VALVE The aortic valve is normal in structure and function. Doppler and Color Flow revealed no significant aortic regurgitation. There is no significant aortic valvular stenosis. Calculated aortic valve area is 3.37 cm2 with maximum pressure gradient of 8 mmHg and mean pressure gradient of 5 mmHg. MITRAL VALVE The mitral valve is normal in structure and function. There is no evidence of mitral valve prolapse. There is no mitral valve stenosis. Doppler and Color-flow revealed trace mitral regurgitation. TRICUSPID VALVE The tricuspid valve is normal in structure and function. Doppler and Color Flow revealed trace tricus pid regurgitation with an estimated PAP of 24 mmHg. There is no tricuspid valve stenosis. PULMONIC VALVE The pulmonic valve is not well visualized. Doppler and Color Flow revealed trace pulmonic valvular re gurgitation. GREAT VESSELS The aortic root is normal in size. The IVC is normal in size and collapses >50% with inspiration. PERICARDIAL EFFUSION There is no evidence of significant pericardial effusion. Critical Notification Critical Value: No <Conclusion> The left ventricle is normal size. The left ventricular systolic function is normal and the ejection fraction is within normal range. The Ejection Fraction is 50-55%. There is borderline to mild concentric left ventricular hypertrophy. Doppler and Color Flow revealed no significant aortic regurgitation. There is no significant aortic valvular stenosis. Doppler and Color-flow revealed trace mitral regurgitation. Doppler and Color Flow revealed trace tricuspid regurgitation with an estimated PAP of 24 mmHg. Signed by : Dieter Law MD Electronically Approved : 01/12/2021 11:20:53
--- NOTE | 2021-01-12 11:46 | HP ---
ADMIT DATE: 01/11/2021 CHIEF COMPLAINT: Chest pain and difficulty swallowing. HISTORY OF PRESENT ILLNESS: A ____-lroo-ata white female with no previous cardiac or GI history who presented with acute pressure-like pain in the lower mid chest associated with feeling of difficulty swallowing. This came on fairly abruptly and it has not been preceded by heartburn, dysphagia, melena, hematochezia, odynophagia, or exertional chest pain. Chest x-ray, EKG and labs were okay and GI and cardiovascular consult seen her and both agreed this is likely GI in origin. It sounds like a distal esophageal process. Protonix, Carafate have been started and a GI cocktail was given and she maybe is a little better. She has been taking naproxen 500 mg once a day for the last several months as the likely seeming cause of this. She has had some mild dizzy spells in the last few weeks, but no overt syncopal episodes or ____. PAST MEDICAL HISTORY: Multiple surgeries including full hysterectomy, cholecystectomy, gastric lap band and revision, Celina-en-Y gastric bypass some years ago. MEDICATIONS: She takes Tegretol for trigeminal neuralgia as well as atorvastatin but no ____ meds or beta blockers for slow heart rate. She takes no other NSAIDs meds except for naproxen. No daily aspirin. SOCIAL HISTORY: She is nonsmoker, single. Works ____ nondrinker. FAMILY HISTORY: Positive for heart disease in her father. REVIEW OF SYSTEMS: No other specific overt symptoms. Endoscopy history as listed in the GI notes. OBJECTIVE: ENT: Unremarkable. NECK: No masses, nodes or thyroid enlargement. LUNGS: Clear, without tachypnea. CARDIOVASCULAR: Regular rate. No murmur. S3 or rub is heard. No chest wall tenderness. BREASTS: Not examined. ABDOMEN: Benign, soft, nontender. EXTREMITIES: No active joint or skin lesions. Nail beds pink. Pulses are good. NEUROLOGIC: Physiologic and nonfocal. gambling monitor shows persistent sinus bradycardia with rates 45 to 50 and no sign of AV block at this time. PLAN: Agree with need for EGD as she likely has distal esophagitis or possibly esophageal stricture from likely naproxen use. ____ bradycardia raises the question of sick sinus syndrome with possible pacing, but continued monitoring ____. GINETTE VELAZQUEZ MD DR: AMAURY/nila JOB#: [id number] / [id number]
--- NOTE | 2021-01-12 12:16 | PDOC ---
CARDIO Progress Notes Date and Time Date of Service 01/12/2021 Time of Evaluation 1200 Subjective Subjective: No shortness of breath, No Palpitations, Other (still having sensation in her chest like somthing is stuck) Vitals Vitals Vital Signs Date Time Temp Pulse Resp B/P (MAP) Pulse Ox O2 Delivery O2 Flow Rate FiO2 01/12/21 10:00 98.1 45 16 113/63 (80) 97 Room Air 98.1 Weight Weight [ ] Input and Output Intake and Output Intake and Output 01/12/21 07:00 Intake Total 900 ml Output Total 700 ml Balance 200 ml Intake Oral 900 ml Output Urine Total 700 ml Laboratory Labs Laboratory Tests Test 01/11/21 14:08 01/12/21 07:10 Troponin I Quantitative < 0.017 ng/mL (0.000-0.055) White Blood Count 3.0 x10^3/uL (4.0-11.0) Red Blood Count 3.89 x10^6/uL (3.50-5.40) Hemoglobin 11.4 g/dL (12.0-15.5) Hematocrit 34.1 % (36.0-47.0) Mean Corpuscular Volume 88 fL (79-100) Mean Corpuscular Hemoglobin 29 pg (25-35) Mean Corpuscular Hemoglobin Concent 34 g/dL (31-37) Red Cell Distribution Width 15.6 % (11.5-14.5) Platelet Count 163 x10^3/uL (140-400) Neutrophils (%) (Auto) 56 % (31-73) Lymphocytes (%) (Auto) 29 % (24-48) Monocytes (%) (Auto) 9 % (0-9) Eosinophils (%) (Auto) 5 % (0-3) Basophils (%) (Auto) 1 % (0-3) Neutrophils # (Auto) 1.7 x10^3/uL (1.8-7.7) Lymphocytes # (Auto) 0.9 x10^3/uL (1.0-4.8) Monocytes # (Auto) 0.3 x10^3/uL (0.0-1.1) Eosinophils # (Auto) 0.2 x10^3/uL (0.0-0.7) Basophils # (Auto) 0.0 x10^3/uL (0.0-0.2) Sodium Level 141 mmol/L (136-145) Potassium Level 4.6 mmol/L (3.5-5.1) Chloride Level 103 mmol/L (98-107) Carbon Dioxide Level 30 mmol/L (21-32) Anion Gap 8 (6-14) Blood Urea Nitrogen 14 mg/dL (7-20) Creatinine 0.9 mg/dL (0.6-1.0) Estimated GFR (Cockcroft-Gault) 66.0 BUN/Creatinine Ratio 16 (6-20) Glucose Level 86 mg/dL (70-99) Calcium Level 8.9 mg/dL (8.5-10.1) Total Bilirubin 0.3 mg/dL (0.2-1.0) Aspartate Amino Transf (AST/SGOT) 27 U/L (15-37) Alanine Aminotransferase (ALT/SGPT) 35 U/L (14-59) Alkaline Phosphatase 90 U/L (46-116) Total Protein 6.4 g/dL (6.4-8.2) Albumin 3.5 g/dL (3.4-5.0) Albumin/Globulin Ratio 1.2 (1.0-1.7) Physical Exam HEENT: Neck Supple W Full Motion Chest: Symmetric LUNGS: Clear to Auscultation Heart: S1S2, RRR (SB 40s at rest) Abdomen: Soft N/T Extremities: No Edema, No Calf Tenderness Neurology: alert, oriented, follow commands Assessment Assessment 1. Chest pain: suspect GI. EF and WM nml 2. GERD exacerbation with odynophagia GI following 3. Chronic NSAID use: nightly use of 500 mg naproxen without any PPI nor H2 emily 4. Hx of gastric bypass: in 2009 unknown what type 5. Asymptomatic SB: mid 40s at rest with good chronotropic response. Lowest 40 no pauses or HB 6. Intermittent Dizziness 7. HLP: on statin 8. Obesity Recommendations 1. Continue PPI. DC naproxen 2. Avoid AV jose blocking agents 3. Given her risk factors including family hx will arrange for treadmill stress test as an outpt 4. Would also consider MCOT given her complaint of dizziness Justicifation of Admission Dx: Justifications for Admission: Justification of Admission Dx: Yes LALI QUINTANILLA APRN Jan 12, 2021 12:16
[2021-01-12] MEDS ORDERED: ACETAMINOPHEN 325 MG TABLET. PO PRN (13:00)
[2021-01-12 14:16] VITALS: BP 111/63
[2021-01-12 19:44] VITALS: BP 95/59
[2021-01-12] MEDS: traZODone 50 MG TABLET. PO SCH (20:48)
[2021-01-12] MEDS: ATORVASTATIN CALCIUM 40 MG TABLET. PO SCH (20:49)
[2021-01-12] MEDS: FLUoxetine HCL 20 MG CAPSULE PO SCH (20:49)
[2021-01-12] MEDS: carBAMazepine 200 MG TABLET PO SCH (20:49)
[2021-01-12 22:14] VITALS: BP 101/57
[2021-01-13 02:29] VITALS: BP 98/56
[2021-01-13] MEDS ORDERED: HYDROmorphone 2 MG/ML VIAL IVP PRN (06:00)
[2021-01-13] MEDS ORDERED: IV RINGERS,LACTATED 1000ML 1,000 ML IV ONE (06:00)
[2021-01-13] MEDS ORDERED: fentaNYL PF VIAL 100 MCG/2 ML VIAL IVP PRN ×2 (06:00)
[2021-01-13] MEDS ORDERED: PROCHLORPERAZINE 10 MG/2 ML VIAL. IVP PRN (06:00)
[2021-01-13] MEDS ORDERED: IV RINGERS,LACTATED 1000ML 1,000 ML IV SCH (06:00)
[2021-01-13] MEDS ORDERED: MORPHINE SULFATE 2 MG/ML VIAL. IVP PRN (06:00)
[2021-01-13 07:00] VITALS: BP 109/67
--- NOTE | 2021-01-13 08:48 | PDOC ---
Provider Note Date of Service: DATE: 01/13/21 TIME: 08:48 Provider Note feels a little better re gi meds, still giuliano rate 30s- 50- for egd today then likely home Justifications for Admission Other Justification GINETTE VELAZQUEZ MD Jan 13, 2021 08:48
[2021-01-13] MEDS ORDERED: PROPOFOL 10 MG/ML (20ML) VIAL. IV ONE (09:05)
[2021-01-13] MEDS ORDERED: LIDOCAINE 2% PF 5 ML VIAL. ONE (09:05)
--- NOTE | 2021-01-13 09:38 | PDOC4 ---
Operative Note Operative Note EGD with biopsies Meds Propofol per anesthesia Pre-op dx odynophagia/abd pain Post-op dx reflux esophagitis s/p bx s/p gastric bypass Plan carafate therapy for alkaline reflux further cardiology work-up of non gastro-intestinal chest pain with bradycardia FELECIA ROSENTHAL MD Jan 13, 2021 09:38
[2021-01-13] MEDS: PANTOPRAZOLE 40 MG TABLET.DR. PO SCH (10:41)
[2021-01-13 10:51] VITALS: BP 119/64
[2021-01-13] MEDS ORDERED: SUCRALFATE 1 GM/10 ML ORAL.SUSP. PO SCH (11:30)
--- NOTE | 2021-01-13 13:46 | NUR ---
SS following for discharge planning. SS reviewed pt chart and discussed with pt RN. Pt is from home with family and is currently on room air. COVID19 negative. Pt had EGD today. Discharge plan is to home when medically ready. SS will continue to follow for discharge planning.
[2021-01-13 14:30] VITALS: BP 110/70
[2021-01-13] MEDS ORDERED: PANT40TA77 PO (14:45)
--- NOTE | 2021-01-13 18:46 | DS ---
DATE OF DISCHARGE: 01/13/2021 HOSPITAL SUMMARY: The patient came in with midsternal chest discomfort and sensation of dysphagia, and has been taking naproxen for several weeks for low back pain. Laboratory studies, troponin and echocardiogram are all within normal limits. Chest x-ray was clear. She did exhibit some sinus bradycardia on one of the monitor in the 30-50 range, but symptoms were not consistent with cardiovascular disease. She was treated with Protonix and Carafate, and EGD was done on the day of dismissal, but no specific lesions were found for the GI report. It is felt likely that a distal esophagitis from naproxen was the source of her discomfort and perhaps there was some improvement with medication. She was comfortable to be followed as an outpatient. She will wear a 14-day event monitor per Cardiology regarding her bradycardia, but this appears to be a separate problem and she is not symptomatic from that. FINAL DIAGNOSES: 1. Chest pain, likely secondary to distal esophagitis from naproxen. 2. Sinus bradycardia, etiology undetermined. OPERATIONS AND PROCEDURES: EGD. COMPLICATIONS: None. DISPOSITION: No new medications. We will stop the naproxen at this point, she can use Tylenol. She can use omeprazole bstg-xkr-czlnbit 20-40 mg daily if needed for recurrent symptoms. She will wear the event monitor and then follow up with the music professor regarding her bradycardia and the question of need for pacemaker. GINETTE VELAZQUEZ MD DR: AMAURY/nila JOB#: [id number] / [id number]
== END 2021-01-13 15:07 | disposition home or self-care (01) ==
LOC: ER 06:55 → 2 SOUTH 08:21
PROVIDERS: ADMIT Family Medicine; ATTEND Family Medicine
DX: R07.89 Other chest pain (principal); Z20.822 Contact with and (suspected) exposure to COVID-19; D64.9 Anemia, unspecified; I10 Essential (primary) hypertension; R13.10 Dysphagia, unspecified; E11.9 Type 2 diabetes mellitus without complications; E78.00 Pure hypercholesterolemia, unspecified; E78.5 Hyperlipidemia, unspecified; G50.0 Trigeminal neuralgia; K63.89 Other specified diseases of intestine; K21.00 Gastro-esophageal reflux disease with esophagitis, without bleeding; N39.0 Urinary tract infection, site not specified; E66.9 Obesity, unspecified; F32.9 Major depressive disorder, single episode, unspecified; M54.30 Sciatica, unspecified side; Z79.1 Long term (current) use of non-steroidal anti-inflammatories (NSAID); Z87.891 Personal history of nicotine dependence; Z98.84 Bariatric surgery status; Z79.4 Long term (current) use of insulin; Z90.710 Acquired absence of both cervix and uterus; Z98.890 Other specified postprocedural states; Z68.32 Body mass index [BMI] 32.0-32.9, adult
CPT/HCPCS: 36415; 43239; 71045; 80048; 80053; 80061; 80076; 82607; 83540; 83550; 83690; 83880; 84443; 84484; 85025; 85379; 87426; 93005; 93306; 96374; 99285; G0378; J2405; J2704; J7120; U0003; G0379

== ENCOUNTER → 2021-01-25 | Outpatient (CLI) | payer OTHER ==
[2021-01-13 14:30] VITALS: BP 110/70
[~2021-01-25] MED LIST changes: +ATOR80TA72 PO; +CARB100C4 PO; +FLUO40CA9 PO; -IOHEXOL 240 MG/ML 50ML VIAL. PO ONE; -IOHEXOL 300 MG/ML 100ML VIAL. IV ONE; +NAPR500T8 PO; +PANT40TA77 PO; +TRAZ150T49 PO
--- NOTE | 2021-01-25 15:12 | RAD ---
MR#: [id number] Date of Study: 01/25/2021 Ordering Physician: LAMONT BUNCH, Referring Physician: MICHAEL LUIS Tech: RT Sridhar (R) (N) APPROVED REPORT Test Type: Exercise Stress Nurse/Tech: Josey Hicks RN Test Indications: Chest Pain, Low heart rate in the 40s Cardiac History: See EMR Medications: See EMR Medical History: See EMR Resting ECG: SB Resting Heart Rate: 50 bpm Resting Blood Pressure: 99/52mmHg Pretest Chest Pain: No chest pain Nurse/Tech Notes Lungs CTA, Heart tones regular. Consent: The procedure was explained to the patient in lay terms. Informed consent was witnessed. Perez eout was entered into [employer]. History and Stress Test performed by RT Colt (R) (N) Stress Symptoms Dyspnea, Lightheaded and dizzy. POST EXERCISE Reason for Termination: Reached target heart rate Target HR: Yes Max HR: 144 bpm 100% of Maximum Predicted HR: 143 bpm Exercise duration: 9:02 min:sec, 3 Stage Exercise capacity: 13.4METs Max Blood Pressure: 128/72mmHg Blood Pressure response to exercise: Normal blood pressure response during stress. Heart Rate response to exercise: WNL Chest Pain: No. Arrhythmia: No. ST Change: No. INTERPRETATION Stress EKG Conclusion: Baseline EKG showed sinus rhythm. No ischemic changes at peak stress. No arr hythmias. Imaging Protocol IMAGE PROTOCOL: Rest Tc-99m/stress Tc-99m 1 day Rest: Stress: Viability: Radiopharm.Tc99m WmkhtnoiuMf52z Sestamibi Wpui23eHd 138mCi Duration 13min. 13min. Img Date 01/25/2021 01/25/2021 Inj-Img Bmxm46ijw. 60min. Rest Admin Site:IV - Right AntecubitalAdministrator:RT Colt ([place])(N) Stress Admin Site: IV - Right AntecubitalAdministrator: RT Colt (R)(N) STRESS DATA End Diast. Vol.78.0mlLVEDV index BSA44.0ml End Syst. Vol.18.0mlLVESV index BSA10.0ml Myocardial Ojmc934.0gEject. Fhijxioe76.0% Stress Scores Regional WT0.00Summed WT0.00 Regional WM0.00Summed WM2.00 Study quality was good. Left Ventricular size was Normal at Rest and Stress. Lung uptake was . Left Ventricular ejection fraction is 75%. The rest and stress images show normal perfusion, normal contraction and thickening. LV Perf. Quant 17 Seg. SSS0.00 17 Seg. SRS0.00 17 Seg. SDS0.00 Stress Defect Extent (% LAD)0.00Rest Defect Extent (% LAD)0.00Rev. Defect Extent (% LAD)0.00 Stress Defect Extent (% LCX) 0.00Rest Defect Extent (% LCX)0.00Rev. Defect Extent (% LCX)0.00 Stress Defect Extent (% RCA)0.00Rest Defect Extent (% RCA)0.00Rev. Defect Extent (% RCA)0.00 Stress Defect Extent (% MIKE)0.00Rest Defect Extent (% MIKE)0.00Rev. Defect Extent (% MIKE)0.00 Conclusion 1. Treadmill exercise cardioisotope stress test did not show any evidence of ischemia or infarct. 2. Normal left ventricular systolic function with ejection fraction calculated at 75%. 3. Patient had good activity tolerance. Low risk for cardiac events. Signed by : Mathew Rogers, Electronically Approved : 01/25/2021 15:11:55
== END ==
LOC: NM 09:07
PROVIDERS: ATTEND Internal Medicine Cardiovascular Disease
DX: R07.9 Chest pain, unspecified (principal)
CPT/HCPCS: 78452; 93017; A9500